=== PATIENT | male | born 1990 | race African-American/Black ===

== ENCOUNTER 2016-12-26 09:49 | Emergency (ER) | payer OTHER ==
[2016-12-26] MEDS ORDERED: TORADOL IM ONE (12:12)
[2016-12-26] MEDS ORDERED: FLEXERIL PO ONE (12:12)
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
--- NOTE | 2016-12-26 13:26 | Cat Scan Report ---
CT SCAN OF THE CERVICAL SPINE: HISTORY: neck pain. TECHNIQUE: Contiguous 1.25 mm axial images of the cervical spine were obtained. Sagittal and coronal reformatted images. FINDINGS: There is normal alignment of the cervical spine. The body, pedicles and posterior ligaments appear normal. No evidence of fracture or subluxation is seen. The spinal canal appears normal. The prevertebral soft tissues appear normal. IMPRESSION: Unremarkable CT of the cervical spine. No acute process is noted.
[2016-12-26 14:22] VITALS: BP 121/84
== END 2016-12-26 14:20 | disposition home or self-care (01) ==
LOC: ED 09:49
DX: S16.1XXA Strain of muscle, fascia and tendon at neck level, initial encounter (principal); Z72.0 Tobacco use; Z91.018 Allergy to other foods; V49.40XA Driver injured in collision with unspecified motor vehicles in traffic accident, initial encounter; Y93.89 Activity, other specified; Y99.9 Unspecified external cause status; Y92.410 Unspecified street and highway as the place of occurrence of the external cause
CPT/HCPCS: 72125; 96372; 99283; J1885

== ENCOUNTER 2017-12-28 00:12 | Emergency (ER) | payer SELFPAY ==
[2017-12-28 05:54] VITALS: BP 132/89
--- NOTE | 2017-12-28 07:37 | Emergency Department Report ---
Chief Complaint: Urogenital-Male Stated Complaint: PAIN WHEN URINATING JOCK ITCH Time Seen by Provider: 12/28/17 07:32 - HPI History of Present Illness: Patient is a 27-year-old male who presents to ED with a history of jock itch which is usually relieved by [id number] creams and sprays. He presents today stating that he is the chart H for the past 2 weeks and is mildly resolved but not ultimately resolved. Patient also states that his girlfriend told him that he needs to call get tested for STDs. Patient denies fevers/ chills nausea vomiting/pedal discharge, dysuria, lesions. - ROS Review of Systems: As noted in HPI denies all other symptoms - Exam Vital Signs: Vital Signs 12/28/17 05:53 Temperature 98.2 F Pulse Rate 78 Respiratory 18 Rate Blood Pressure 132/89 [Right] O2 Sat by Pulse 98 Oximetry Physical Exam: GENERAL: Alert and oriented x3, no apparent distress, Normal Gait, atraumatic. HEAD: Head is normocephalic and a-traumatic. UROGENITAL: No scrotal mass testicle swelling, no lesions, no erythema, or discharge, hypopigmented macular papular rash on bilateral inner thighs MSE screening note: Focused history and physical exam performed. Due to findings the following was ordered: ED Medical Decision Making - Medical Decision Making 27-year-old male presents with basically screening/jock Itch I discussed the patient to follow up with [facility] for STD screening and intestines. I discussed the patie prescribed an antifungal cream to apply to anus and thighs. I discussed the patient to continue using his [employer] sprays in cream as needed. I discussed if new symptoms or worsening symptoms to return to ED. Vital signs are normal patient is in no acute distress ED Disposition for MSE Clinical Impression: Jock itch Disposition: DC-01 TO HOME OR SELFCARE Is pt being admited?: No Does the pt Need Aspirin: No Condition: Stable Instructions: Terbinafine (On the skin), Jock Itch (ED) Additional Instructions: Make sure to follow up with the primary care physician as discussed. Take all your medications as you've been prescribed. If you have any worsening symptoms or develop new symptoms please return to ED immediately. Prescriptions: Terbinafine HCl [Terbinafine] 1 applic TP BID #1 tube Referrals: PRIMARY CARE, [Primary Care Provider] - 3-5 Days [facility] [Outside] - 3-5 Days [facility] [Outside] - 3-5 Days Forms: Work/School Release Form(ED) Time of Disposition: 08:54
== END 2017-12-28 07:47 | disposition home or self-care (01) ==
LOC: ED 00:12
DX: B35.6 Tinea cruris (principal); Z91.048 Other nonmedicinal substance allergy status
CPT/HCPCS: 99282